=== PATIENT | female | born 1990 | race Caucasian/White ===

== ENCOUNTER 2019-06-08 13:36 | Emergency (ER) | payer BC ==
[2019-06-08 15:39] VITALS: BP 150/82
--- NOTE | 2019-06-08 15:53 | UC ---
Throat Pain/Nasal Fritz HPI - HPI Summary HPI Summary: nasal congestion x 2 days dry cough , pnd, had a low grade fever, chills and body aches denies any chest pain , no sob was told from her work that she needs to be seen no recent travels, no sick contacts - History of Current Complaint Chief Complaint: UCGeneralIllness Stated Complaint: FEVER,COUGH,CONGESTION Time Seen by Provider: 06/08/19 15:46 Hx Obtained From: Patient Hx Last Menstrual Period: 05/31/19 ?: No Onset/Duration: Gradual Onset, Lasting Days - 2, Still Present Severity: Moderate Pain Intensity: 3 Cough: Nonproductive Associated Signs & Symptoms: Positive: Nasal Discharge, Fever. Negative: Wheezing, Hoarseness, Sinus Discomfort, Vomiting, Rash - Allergies/Home Medications Allergies/Adverse Reactions: Allergies Allergy/AdvReac Type Severity Reaction Status Date / Time sumatriptan [From Imitrex] Allergy Difficulty Verified 06/08/19 15:39 Breathing Home Medications: Home Medications Escitalopram Oxalate [Lexapro] 20 mg PO DAILY 06/08/19 [History Confirmed ] Metformin ER (NF) 500 mg PO BID 06/08/19 [History Confirmed 06/08/19] Norethindr/Eth Estradiol(Nf) [Lo Loestrin Fe (NF)] 1 tab PO DAILY 06/08/19 [ History Confirmed 06/08/19] PMH/Surg Hx/FS Hx/Imm Hx Previously Healthy: Yes - Surgical History Surgical History: None - Family History Known Family History: Negative: Diabetes - Social History Alcohol Use: Occasionally Substance Use Type: None Smoking Status (MU): Never Smoked Tobacco Review of Systems All Other Systems Reviewed And Are Negative: Yes Constitutional: Positive: Fever, Chills, Fatigue Skin: Positive: Negative Eyes: Positive: Negative ENT: Positive: Nasal Discharge. Negative: Sore Throat Respiratory: Positive: Cough Cardiovascular: Positive: Negative Is Patient Immunocompromised?: No Physical Exam Triage Information Reviewed: Yes Appearance: Well-Appearing, No Pain Distress, Well-Nourished Vital Signs: Initial Vital Signs Temp 98.2 F 06/08/19 15:33 Pulse 93 06/08/19 15:33 Resp 14 06/08/19 15:33 BP 150/82 06/08/19 15:33 Pulse Ox 100 06/08/19 15:33 Vital Signs Reviewed: Yes Eye Exam: Normal Eyes: Positive: Conjunctiva Clear ENT: Positive: Normal ENT inspection, Hearing grossly normal, Pharynx normal, Nasal drainage, TMs normal Neck: Positive: Supple, Nontender, No Lymphadenopathy Respiratory: Positive: Chest non-tender, Lungs clear, Normal breath sounds Cardiovascular: Positive: RRR, No Murmur, Pulses Normal Skin Exam: Normal Throat Pain/Nasal Course/Dx - Differential Dx/Diagnosis Provider Diagnosis: URI (upper respiratory infection) Discharge ED - Sign-Out/Discharge Documenting (check all that apply): Patient Departure All imaging exams completed and their final reports reviewed: No Studies - Discharge Plan Condition: Stable Disposition: HOME Patient Education Materials: Upper Respiratory Infection (ED) Forms: *Work Release - Billing Disposition and Condition Condition: STABLE Disposition: Home
== END 2019-06-08 16:08 | disposition home or self-care (01) ==
LOC: UCCORT 13:36
DX: J06.9 Acute upper respiratory infection, unspecified (principal); R53.83 Other fatigue; Z88.6 Allergy status to analgesic agent
CPT/HCPCS: 99201; G0463